=== PATIENT | male | born 1950 | race Caucasian/White ===

== ENCOUNTER 2018-02-06 09:18 | Emergency (ER) | payer MEDICARE ==
[~2018-02-06] VITALS: Ht 177.8 cm; Wt 86.4 kg
[2018-02-06 09:29] VITALS: BP 148/80; TEMP 98.1
[2018-02-06] MEDS ORDERED: LIPITOR 10MG10 MG PO (09:34)
[2018-02-06] MEDS ORDERED: ASPIRIN 81M81 MG/TA2 PO (09:34)
[2018-02-06] MEDS ORDERED: FLOMAX 0.40.4 MG/CAP PO (09:35)
[2018-02-06 10:17] LABS: BASO # 0.1 (0.0-0.2); BASO % 0.7 % (0.0-2.0); EOS # 0.1 (0.0-0.7); GRAN # 4.6 (1.4-6.5); HEMOGLOBIN 14.5 g/dl (13.5-18.0); LYMPH # 1.6 (1.2-3.4); LYMPH % 21.9 % (20.0-51.0); MEAN CELL VOLUME 88 fl (80.0-100.0); MEAN CORPUSCULAR HEMOGLOBIN 28 pg (27.0-31.0); MEAN CORPUSCULAR HGB CONC 32 g/dl (33.0-37.0); MEAN PLATELET VOLUME 10.4 fl (7.4-10.4); MONO # 0.7 (0.1-0.6); MONO % 10.3 % (1.7-9.3); PLATELET COUNT 198 K/mm3 (130-400); RED BLOOD COUNT 5.14 M/mm3 (4.20-5.60); REDCELL DISTRIBUTION WIDTH-CV 15.5 % (11.5-14.5)
[2018-02-06 10:26] LABS: ALBUMIN 3.5 gm/dL (3.5-5.0); BILIRUBIN,TOTAL 0.6 mg/dL (0.0-1.0); C-REACTIVE PROTEIN 0.8 mg/dL (0.0-0.9); CREATININE, serum 0.71 mg/dL (0.66-1.25); POTASSIUM 4.3 mmol/L (3.4-5.0); TOTAL PROTEIN 6.2 gm/dL (6.4-8.2)
[2018-02-06 11:45] LABS: COLLECTION METHOD CLEAN CATCH
[2018-02-06 11:59] LABS: PH 6 (5-8); SQUAMOUS EPITHELIAL None Seen /hpf; URINE APPEARANCE Clear; URINE BACTERIA None Seen /hpf; URINE BILIRUBIN Negative (NEGATIVE); URINE BLOOD 2+ (NEGATIVE); URINE COLOR Straw; URINE GLUCOSE Negative (NEGATIVE); URINE KETONE Negative (NEGATIVE); URINE LEUKOCYTE ESTERASE Negative (NEGATIVE); URINE NITRATE Negative (NEGATIVE); URINE PROTEIN(semi-quant) Negative (NEGATIVE); URINE UROBILINOGEN Negative (NEGATIVE)
[2018-02-06] MEDS ORDERED: ZOFRAN ODT4 MG PO (12:00)
[2018-02-06] MEDS ORDERED: NORCO 325 MG-51 TAB PO (12:00)
[2018-02-06 13:21] VITALS: PULSE 57
== END 2018-02-06 14:17 | disposition home or self-care (01) ==
LOC: COL.ER 09:18
PROVIDERS: Physician Assistant
DX: N20.1 Calculus of ureter (principal); Q63.2 Ectopic kidney; E78.00 Pure hypercholesterolemia, unspecified; Z79.82 Long term (current) use of aspirin
CPT/HCPCS: J1885; J7040; Q9967